=== PATIENT | male | born 1955 | race African-American/Black ===

== ENCOUNTER 2018-07-07 04:33 | Inpatient (IN) | payer SELFPAY ==
[~2018-07-07] VITALS: Ht 185.4 cm; Wt 92.1 kg
[~2018-07-07 04:33] MED LIST: AMLO5TAB88
[2018-07-07 06:01] LABS: CHLORIDE 102 mEq/L (98-107)
[2018-07-07 06:05] LABS: ETHANOL BLOOD < 10 mg/dL
[2018-07-07 06:11] LABS: BASOPHILS % 0.4 % (0.0-2.0); EOSINOPHILS % 3.2 % (0.0-5.0); HEMATOCRIT. 42.8 % (42.0-52.0); HEMOGLOBIN. 14.5 g/dL (14.0-18.0); LYMPHOCYTES % 29.4 % (20.0-50.0); MEAN CORPUSCULAR HEMOGLOBIN 31.2 pg (28.0-32.0); MEAN CORPUSCULAR VOLUME 92.3 fL (80.0-94.0); MEAN PLATELET VOLUME 8.5 fl (7.4-10.4); MONOCYTES % 7.1 % (2.0-8.0); NEUTROPHILS % 59.9 % (40.0-76.0); PLATELET 175 x1000/uL (130-400); RED BLOOD CELL COUNT 4.64 mill/uL (4.7-6.1); RED CELL DISTRIBUTION WIDTH 14.3 % (11.6-14.6)
[2018-07-07 07:31] LABS: CLARITY URINE CLEAR (CLEAR); COLOR URINE YELLOW (YELLOW); KETONES URINE NEGATIVE (NEGATIVE); LEUKOCYTE ESTERASE URINE NEGATIVE (NEGATIVE); NITRITE URINE NEGATIVE (NEGATIVE); OCCULT BLOOD URINE 1+ (NEGATIVE); PH URINE 7.5 (4.5-8.0); PROTEIN URINE NEGATIVE (NEGATIVE); SPECIFIC GRAVITY URINE 1.017 (1.005-1.030); UROBILINOGEN URINE 0.2 E.U./dL (0.2-1.0)
[2018-07-07 07:45] LABS: *AMPHETAMINES SCREEN URINE NEGATIVE (NEGATIVE); *BARBITURATES SCREEN URINE NEGATIVE (NEGATIVE); *BENZODIAZEPINES SCREEN URINE NEGATIVE (NEGATIVE); *COCAINE SCREEN URINE NEGATIVE (NEGATIVE); METHADONE URINE SCREEN NEGATIVE (NEGATIVE)
[2018-07-07 07:46] LABS: CANNABINOID URINE SCREEN NEGATIVE (NEGATIVE); OPIATES URINE SCREEN NEGATIVE (NEGATIVE); PHENCYCLIDINE URINE SCREEN NEGATIVE (NEGATIVE)
[2018-07-07] MEDS ORDERED: AMLODIPINE 5MG TABLET PO ONE (09:15)
[2018-07-07] MEDS ORDERED: ACETAMINOPHEN 325MG TABLET PO PRN (09:45)
[2018-07-07] MEDS ORDERED: NITROGLYCERIN 0.4MG TABLET SL SL PRN ×2 (09:45→13:15)
[2018-07-07] MEDS ORDERED: GUAIFENESIN 200MG/10ML SUGAR FREE UDC PO PRN (09:45)
[2018-07-07] MEDS ORDERED: LORAZEPAM 0.5MG TABLET PO PRN (09:45)
[2018-07-07] MEDS ORDERED: ONDANSETRON HCL 4MG/2ML INJ IV PRN (09:45)
[2018-07-07] MEDS ORDERED: KETOROLAC 15MG/ML VIAL IV PRN (09:45)
[2018-07-07 12:45] VITALS: BP 184/100
[2018-07-07] MEDS ORDERED: AMLODIPINE 10MG TABLET PO SCH (13:00)
[2018-07-07] MEDS ORDERED: HYDRALAZINE 20MG/ML VIAL IV NR (13:14)
[2018-07-07] MEDS ORDERED: ONDANSETRON 4MG ODT PO PRN (13:15)
[2018-07-07] MEDS ORDERED: LISI40TA4 PO (13:18)
[2018-07-07] MEDS ORDERED: LORA10TA7 PO (13:19)
[2018-07-07] MEDS ORDERED: HYDR12.529 PO (13:19)
[2018-07-07] MEDS ORDERED: DOCUSATE SODIUM 100MG CAPSULE PO PRN (13:30)
[2018-07-07] MEDS ORDERED: CLONIDINE 0.1MG TABLET PO PRN (13:30)
[2018-07-07] MEDS ORDERED: MAGNESIUM/ALUMINUM HYDROXIDE/SIMETHICONE 30ML UDC PO PRN (13:30)
[2018-07-07] MEDS ORDERED: DIPHENHYDRAMINE 50MG/ML VIAL IV PRN (13:30)
[2018-07-07] MEDS ORDERED: NA PHOS,M-B/NA PHOS,DI-BA ENEMA 118ML PR PRN (13:30)
[2018-07-07] MEDS: HYDRALAZINE HCL 50MG TABLET PO SCH ×2 (13:54→23:00)
[2018-07-07] MEDS: ASPIRIN 325MG EC TABLET PO SCH (13:54)
[2018-07-07] MEDS: ENOXAPARIN 40MG/0.4ML SYR SUBCUT SCH (13:55)
[2018-07-07] MEDS ORDERED: IPRATROPIUM/ALBUTEROL 0.5-3(2.5)MG/3ML NEB INH PRN (14:00)
[2018-07-07 16:00] VITALS: BP 192/111
[2018-07-07] MEDS ORDERED: POTASSIUM CHLORIDE 20MEQ/PACKET PO NR (18:15)
[2018-07-07 20:00] VITALS: BP 121/73
[2018-07-07] MEDS ORDERED: ATORVASTATIN CALCIUM 40MG TABLET PO SCH (21:00)
[2018-07-07] MEDS ORDERED: ZOLPIDEM TARTRATE 5MG TABLET PO PRN (21:00)
[2018-07-07] MEDS: LISINOPRIL 20MG TABLET PO SCH (22:26)
[2018-07-07] MEDS: FAMOTIDINE 20MG TABLET PO SCH (22:27)
[2018-07-07] MEDS: METOPROLOL TARTRATE 25MG TABLET PO SCH (22:27)
[2018-07-08] VITALS: BP 109/72
[2018-07-08 04:00] VITALS: BP 142/91
[2018-07-08] MEDS: HYDRALAZINE HCL 50MG TABLET PO SCH (05:12)
[2018-07-08 08:00] VITALS: BP 147/83
[2018-07-08] MEDS: METOPROLOL TARTRATE 25MG TABLET PO SCH (09:00)
[2018-07-08] MEDS ORDERED: AMLODIPINE 10MG TABLET PO SCH (09:00)
[2018-07-08] MEDS: ENOXAPARIN 40MG/0.4ML SYR SUBCUT SCH (09:23)
[2018-07-08] MEDS: FAMOTIDINE 20MG TABLET PO SCH (09:23)
[2018-07-08] MEDS: ASPIRIN 325MG EC TABLET PO SCH (09:24)
[2018-07-08] MEDS: LISINOPRIL 20MG TABLET PO SCH (09:26)
[2018-07-08 12:00] VITALS: BP 134/84
[2018-07-08 14:05] VITALS: BP 132/84
== END 2018-07-08 14:40 | disposition home or self-care (01) | DRG 47 ==
LOC: ER 04:33 → 5WST 08:17 → ENRESERV 10:31
PROVIDERS: ADMIT Internal Medicine; ATTEND Internal Medicine
DX: G45.9 Transient cerebral ischemic attack, unspecified (principal); E78.00 Pure hypercholesterolemia, unspecified; I10 Essential (primary) hypertension; E87.6 Hypokalemia; Z79.899 Other long term (current) drug therapy
CPT/HCPCS: 36415; 70450; 70551; 80053; 80061; 80305; 81003; 83036; 85025; 93970; 99285; G0482; J1650